=== PATIENT | male | born 1945 | race Caucasian/White ===

== ENCOUNTER 2022-12-03 12:37 | Emergency (ER) | payer MEDICARE ==
[~2022-12-03] VITALS: Ht 180.3 cm; Wt 79.6 kg
[~2022-12-03 12:37] MED LIST: ALAWAY0.025 % OP; ASPIRIN EC81 MG PO; B-122000 MCG OR; CYCLOBENZAPR10 MG PO; ENALAPRIL10 MG PO; ENALAPRIL2.5 MG PO; FISH OIL1000 MG PO; FLEXERIL OR; GLIPIZIDE ER10 M1 PO; GLIPIZIDE5 MG PO; NAPROSYN500 MG PO; [UNRECOGNIZED DRUG - OTHER] TOP
[2022-12-03] MEDS ORDERED: KEFLEX500 MG PO (13:17)
[2022-12-03 13:34] VITALS: BP 104/68
== END 2022-12-03 13:35 | disposition home or self-care (01) ==
LOC: ED 12:37
PROC: 0HQNXZZ Repair Left Foot Skin, External Approach (ICD-10-PCS; principal; 2022-12-03)
DX: S91.312A Laceration without foreign body, left foot, initial encounter (principal); W20.8XXA Other cause of strike by thrown, projected or falling object, initial encounter; Y93.H9 Activity, other involving exterior property and land maintenance, building and construction; Y92.007 Garden or yard of unspecified non-institutional (private) residence as the place of occurrence of the external cause